=== PATIENT | female | born 1960 | race Caucasian/White ===

== ENCOUNTER → 2016-05-28 | Outpatient (REF) | payer OTHER ==
[~2016-05-28] MED LIST: ALEV220C2 PO; ASPI81TA85 PO; ESTRADIOL VALERATE PO; LEVO125T3 PO; LIPI20TA PO; NATATAB2 PO; NICO14DI20 TD
== END ==
LOC: M LAB REF 22:26
PROVIDERS: ATTEND Physician Assistant Medical
DX: N39.0 Urinary tract infection, site not specified (principal); R30.0 Dysuria

== ENCOUNTER → 2017-04-29 | Outpatient (CLI) | payer OTHER | LOC: M WUC 16:24 | DX: R05 Cough (principal) | CPT/HCPCS: 71046 ==

== ENCOUNTER 2019-01-26 20:33 | Observation (INO) | payer OTHER ==
[~2019-01-26] VITALS: Ht 157.5 cm; Wt 70.3 kg
[~2019-01-26 20:33] MED LIST changes: -LEVO125T3 PO; +LEVO125T4 PO
[2019-01-26 21:14] LABS: BASO % 0.2 % (0.0-1.0); EOS # 0.2 10^3/uL (0.0-0.5); EOS % 1.9 % (0.0-3.0); HEMATOCRIT 29.6 % (36.0-47.0); HEMOGLOBIN 9.3 g/dl (12.0-15.5); LYMPH % 8.4 % (24.0-44.0); MEAN CORPUSCULAR HEMOGLOBIN 28.6 pg (27.0-33.0); MEAN CORPUSCULAR HGB CONC 31.4 g/dl (32.0-36.5); MEAN CORPUSCULAR VOLUME 91.1 fl (80.0-96.0); MONO % 8.3 % (0.0-5.0); NEUTROPHILS # 9.9 10^3/uL (1.5-8.5); NEUTROPHILS % 80.5 % (36.0-66.0); PLATELET COUNT, AUTOMATED 299 10^3/uL (150-450); RED BLOOD COUNT 3.25 10^6/uL (4.00-5.40); WHITE BLOOD COUNT 12.2 10^3/uL (4.0-10.0)
[2019-01-26 21:53] LABS: ALBUMIN 3.4 GM/DL (3.2-5.2); ALT/SGPT 12 U/L (12-78); BILIRUBIN,DIRECT < 0.1 MG/DL (0.0-0.2); BILIRUBIN,TOTAL 0.3 MG/DL (0.2-1.0); BLOOD UREA NITROGEN 58 MG/DL (7-18); CALCIUM LEVEL 8.3 MG/DL (8.8-10.2); CARBON DIOXIDE LEVEL 27 MEQ/L (21-32); CHLORIDE LEVEL 104 MEQ/L (98-107); CK-MB VALUE MASS < 1.0 NG/ML (<3.6); CPK CREATINE PHOSPHOKINASE 17 U/L (26-192); GLUCOSE, FASTING 123 MG/DL (70-100); MB/CK RELATIVE INDEX 5.88 (< OR =4); NT-PRO BNP 1568 PG/ML (<125); POTASSIUM SERUM 3.5 MEQ/L (3.5-5.1); SODIUM LEVEL 139 MEQ/L (136-145); TOTAL PROTEIN 6.4 GM/DL (6.4-8.2); TROPONIN I < 0.02 NG/ML (< 0.10)
--- NOTE | 2019-01-26 22:48 | REPVR ---
PROCEDURE INFORMATION: Exam: CT Cervical Spine Without Contrast Exam date and time: 01/26/2019 10:21 PM Age: 58 years old Clinical history: Injury or trauma; Fall; Initial encounter; Blunt trauma; Additional info: Fall/syncope TECHNIQUE: Imaging protocol: Computed tomography images of the cervical spine without contrast. Radiation optimization: All CT scans at this facility use at least one of these dose optimization techniques: automated exposure control; mA and/or kV adjustment per patient size (includes targeted exams where dose is matched to clinical indication); or iterative reconstruction. COMPARISON: No relevant prior studies available. FINDINGS: Vertebrae: Straightening of the normal cervical lordotic curvature. Normal vertebral body heights and alignments. No fractures. C6-C7 endplate Schmorl's node cavities. Discs/Spinal canal/Neural foramina: No spinal stenosis. No neural foraminal narrowing. Soft tissues: Unremarkable. Lungs: Lung apices are normal. Vasculature: Left carotid stent. IMPRESSION: No acute fracture/subluxation. Electronically signed by: Jacob Pennington On 01/26/2019 22:48:00 PM
--- NOTE | 2019-01-26 22:50 | REPVR ---
PROCEDURE INFORMATION: Exam: CT Head Without Contrast Exam date and time: 01/26/2019 10:21 PM Age: 58 years old Clinical history: Injury or trauma; Fall; Initial encounter; Blunt trauma (contusions or hematomas); Additional info: Fall/syncope TECHNIQUE: Imaging protocol: Computed tomography of the head without contrast. Radiation optimization: All CT scans at this facility use at least one of these dose optimization techniques: automated exposure control; mA and/or kV adjustment per patient size (includes targeted exams where dose is matched to clinical indication); or iterative reconstruction. COMPARISON: CT Head without contrast 2014-04-30 11:26 FINDINGS: Brain: Diffuse moderate cerebral age related volume loss. Moderate patchy low attenuation in the white matter compatible with moderate chronic small vessel ischemic disease. No midline shift, mass, fluid collection, or evidence of hemorrhage. Ventricles: Ventricular enlargement proportional to volume loss. Bones/joints: Unremarkable. No acute fracture. Sinuses: Visualized sinuses are unremarkable. No fluid levels. Mastoid air cells: Visualized mastoid air cells are well aerated. Soft tissues: Left periorbital soft tissue swelling. Vasculature: Coarse atherosclerotic calcifications in the vertebral and internal carotid arteries. IMPRESSION: Moderate involutional changes, no acute intracranial abnormality. Electronically signed by: Jacob Pennington On 01/26/2019 22:50:30 PM
--- NOTE | 2019-01-26 22:52 | REPVR ---
PROCEDURE INFORMATION: Exam: CT Maxillofacial Without Contrast Exam date and time: 01/26/2019 10:21 PM Age: 58 years old Clinical history: Injury or trauma; Fall; Initial encounter; Blunt trauma (contusions or hematomas); Cheek bone and forehead and nose; Bilateral; Additional info: Fall/syncope TECHNIQUE: Imaging protocol: Computed tomography images of the face without contrast. Radiation optimization: All CT scans at this facility use at least one of these dose optimization techniques: automated exposure control; mA and/or kV adjustment per patient size (includes targeted exams where dose is matched to clinical indication); or iterative reconstruction. COMPARISON: No relevant prior studies available. FINDINGS: Orbits: Orbits are normal. Globes are unremarkable. Mastoid air cells: Trace left mastoid effusion. Sinuses: Normal. No air-fluid levels. Bones/joints: Moderate cervical spondylosis. Vasculature: Carotid stent. Soft tissues: Left periorbital soft tissue swelling with a small hematoma. IMPRESSION: 1. No acute osseous abnormality. 2. Left periorbital soft tissue swelling with a small hematoma. Electronically signed by: Jacob Pennington On 01/26/2019 22:52:36 PM
[2019-01-27] VITALS (7 sets, daily range): BP systolic 162–184; BP diastolic 78–90
--- NOTE | 2019-01-27 00:52 | REPVR ---
PROCEDURE INFORMATION: Exam: CT Chest Without Contrast Exam date and time: 01/27/2019 12:04 AM Age: 58 years old Clinical history: Chest pain; Additional info: Chf/ effusion TECHNIQUE: Imaging protocol: Computed tomography of the chest without contrast. 3D rendering: MIP reconstructed images were created and reviewed. Radiation optimization: All CT scans at this facility use at least one of these dose optimization techniques: automated exposure control; mA and/or kV adjustment per patient size (includes targeted exams where dose is matched to clinical indication); or iterative reconstruction. COMPARISON: CR PORTABLE CHEST X-RAY 01/26/2019 9:54 PM FINDINGS: Lungs: Biapical scarring. Dependent and linear atelectasis at the right base. Mild centrilobular emphysema. Pleural space: Small to moderate left pleural effusion with adjacent compressive atelectasis. Heart: Atherosclerotic disease of the coronary arteries. Aorta: Atherosclerotic disease of the thoracic aorta. Mild aneurysmal dilatation of the descending thoracic aorta measuring up to 4 cm in diameter. Lymph nodes: Unremarkable. No enlarged lymph nodes. Liver: Mild hepatomegaly. Bones/joints: Mild osteopenia. Multilevel degenerative disc disease of the thoracic spine. Soft tissues: Unremarkable. IMPRESSION: 1. Small to moderate left pleural effusion with adjacent compressive atelectasis. 2. Atherosclerotic disease of the thoracic aorta. Mild aneurysmal dilatation of the descending thoracic aorta measuring up to 4 cm in diameter. Electronically signed by: Quentin Michaud On 01/27/2019 00:52:49 AM
[2019-01-27] MEDS ORDERED: NS 1,000 ML IV ONE (02:45)
[2019-01-27] MEDS ORDERED: hydrALAZINE INJ 20 MG/ML VIAL IV ONE (03:00)
[2019-01-27] MEDS ORDERED: ALL10TAB29 PO (03:20)
[2019-01-27] MEDS ORDERED: SERT50TA29 PO (03:20)
[2019-01-27] MEDS ORDERED: HYDR25TAB PO (03:20)
[2019-01-27] MEDS ORDERED: LOSA100T50 PO (03:20)
[2019-01-27] MEDS ORDERED: SYNT112T2 PO (03:20)
[2019-01-27] MEDS ORDERED: ATOR40TA75 PO (03:20)
[2019-01-27] MEDS ORDERED: NON-325T5 PO (03:20)
[2019-01-27] MEDS ORDERED: ASPI81TA85 PO (03:20)
--- NOTE | 2019-01-27 03:20 | HPEPDOC ---
General Date of Admission 01/27/19 Date of Service: Jan 27, 2019 Chief Complaint The patient is a 58-year-old female admitted with a reason for visit of Fainting. Source: Patient Exam Limitations: No limitations Severity: Mild Associated Symptoms: Syncope History of Present Illness Patient is 58 years old female with past history of CVA, hypertension, hypothyroidism presented to the hospital after one episode of syncope. Patient stated that yesterday around 6 PM she developed one episode of vomiting and loss of consciousness in the bathroom she hit her head on the left part of the face. She doesn't know how long she has been out of consciousness. According to her patient did not have any focal deficiency, numbness, difficulties in speech after syncope. Patient did not have any seizure-like activities, fecal or urinary incontinence. Of note recently PCP added hydrochlorothiazide 25 mg her drugs regimen. In emergency room patient was found to have mild leukocytosis, elevated blood pressure of 200/80, CT head was negative for acute bleed, showed left orbital hematoma. CT chest was done and showed left mild to moderate pleural effusion. Patient stated that for weeks ago she had COPD exacerbation with acute bronchitis treated with antibiotics. Patient denied fever, chills, nausea, shortness of breath, palpitations, diarrhea or dysuria. Home Medications Scheduled Amlodipine Besylate (Amlodipine Besylate) 10 Mg Tablet, 10 MG PO DAILY, (Reported) Aspirin (Aspir 81) 81 Mg Tablet.dr, 81 MG PO DAILY, (Reported) Atorvastatin Calcium (Atorvastatin Calcium) 40 Mg Tablet, 40 MG PO DAILY, (Reported) Cetirizine HCl (Cetirizine HCl) 10 Mg Tablet, 10 MG PO DAILY, (Reported) Hydrochlorothiazide (Hydrochlorothiazide) 25 Mg Tablet, 25 MG PO DAILY, (Reported) Levothyroxine Sodium (Synthroid) 112 Mcg Tablet, 112 MCG PO DAILY, (Reported) Losartan Potassium (Losartan Potassium) 100 Mg Tablet, 100 MG PO DAILY, (Reported) Sertraline HCl (Sertraline HCl) 50 Mg Tablet, 50 MG PO DAILY, (Reported) Scheduled PRN Acetaminophen (Acetaminophen) 325 Mg Tablet, 650 MG PO Q4H PRN for PAIN, (Reported) Allergies Coded Allergies: No Known Allergies (Verified , 01/26/19) Past Medical History Medical History CVA, left carotid endarterectomy with stent placement, hypothyroidism, hypertension Surgical History Uterectomy Family History Father had coronary artery diseases, [place], diabetes Mother had coronary artery diseases Social History * Smoker: current smoker Alcohol: Denies Drugs: denies A-FIB/CHADSVASC A-FIB History Current/History of A-Fib/PAF?: No Current PO Anticoag Therapy: No Review of Systems Constitutional: Reports: Weakness; Denies: Chills Eyes: Denies: Pain, Vision change ENT: Denies: Head Aches Skin: Denies: Rash Pulmonary: Denies: Dyspnea, Cough Cardiovascular: Denies: Chest Pain, Palpitations Gastrointestinal: Denies: Nausea Genitourinary: Denies: Dysuria Hematologic: Denies: Bruising, Bleeding Excessively Endocrine: Denies: Polydipsia, Polyphagia Musculoskeletal: Denies: Neck Pain, Back Pain Neurological: Denies: Weakness, Numbness, Change in speech Psych: Reports: Mood Normal Physical Examination General Exam: Positive: Alert, Cooperative Eye Exam: Positive: PERRLA, Conjunctiva & lids normal ENT Exam: Positive: Mucous membr. moist/pink; Negative: Atraumatic (left lateral orbital hematoma) Neck Exam: Positive: Supple; Negative: JVD Chest Exam: Positive: Clear to auscultation Heart Exam: Positive: Rate Normal Telemetry: Positive: No significant arrhythmia, Sinus Abdomen Exam: Positive: Normal bowel sounds Extremity Exam: Negative: Clubbing, Cyanosis Skin Exam: Positive: Nl turgor and temperature Neuro Exam: Positive: Normal Gait, Strength at 5/5 X4 ext, Cranial Nerves 3-12 NL Psych Exam: Positive: Mental status NL Vital Signs Vital Signs Date Time Temp Pulse Resp B/P (MAP) Pulse Ox O2 Delivery O2 Flow Rate FiO2 01/27/19 02:54 188/88 (121) 01/27/19 02:03 78 01/27/19 02:01 16 96 Room Air 01/26/19 20:47 98.3 Laboratory Data Labs 24H Laboratory Tests 2 01/26/19 21:03: Immature Granulocyte % (Auto) 0.7, Neutrophils (%) (Auto) 80.5H, Lymphocytes (%) (Auto) 8.4L, Monocytes (%) (Auto) 8.3H, Eosinophils (%) (Auto) 1.9, Basophils (%) (Auto) 0.2, Neutrophils # (Auto) 9.9H, Lymphocytes # (Auto) 1.0L, Monocytes # (Auto) 1.0H, Eosinophils # (Auto) 0.2, Basophils # (Auto) 0.0, Nucleated Red Blood Cells % (auto) 0.0, Anion Gap 8, Glomerular Filtration Rate 23.0L, Calcium Level 8.3L, Total Bilirubin 0.3, Direct Bilirubin < 0.1, Aspartate Amino Transf (AST/SGOT) 6L, Alanine Aminotransferase (ALT/SGPT) 12, Alkaline Phosphatase 82, Total Creatine Kinase 17L, Creatine Kinase MB < 1.0, Creatine Kinase MB Relative Index 5.88H, Troponin I < 0.02, JS-Orm-I-Type Natriuretic Peptide 1568H, Total Protein 6.4, Albumin 3.4, Albumin/Globulin Ratio 1.13, Thyroid Stimulating Hormone (TSH) 2.910 01/26/19 21:10: Bedside Glucose (Misc Panel) 118H CBC/BMP Laboratory Tests 01/26/19 21:03 Assessment/Plan Patient is 58 years old female with past history of CVA, hypertension, hypothyroidism presented to the hospital after one episode of syncope. Patient stated that yesterday around 6 PM she developed one episode of vomiting and loss of consciousness in the bathroom she hit her head on the left part of the face. She doesn't know how long she has been out of consciousness. According to her patient did not have any focal deficiency, numbness, difficulties in speech after syncope. Patient did not have any seizure-like activities, fecal or urinary incontinence Problems (1) Syncope Status: Acute Problem Text: Most likely secondary to dehydration due to new drug regimen with hydrochlorothiazide IV fluid Echo Telemetry (2) Acute kidney injury Status: Acute Problem Text: Most likely prerenal Secondary to dehydration due to diuretic IV volume expansion, continued to mind Losartan and hydrochlorothiazide on hold (3) Pleural effusion Problem Text: Post infectious Patient had around 4-5 weeks ago COPD exacerbation with acute bronchitis Patient doesn't have fever, chills, shortness of breath. Continue to monitor Echo ordered (4) Hypertensive emergency Status: Acute Problem Text: Continue home cardioprotective medications Hydralazine IV when necessary Metoprolol 12.5 twice a day Plan / VTE VTE Prophylaxis Ordered?: Yes SUMMER ANDRE DO Jan 27, 2019 03:20
[2019-01-27] MEDS ORDERED: AMLO10TA5 PO (03:21)
[2019-01-27] MEDS ORDERED: hydrALAZINE INJ 20 MG/ML VIAL IV PRN (03:30)
[2019-01-27] MEDS ORDERED: METOPROLOL TART 25 MG TABLET PO ONE ×2 (03:45→23:15)
[2019-01-27] MEDS: NS 1,000 ML IV SCH ×3 (04:03→16:30)
[2019-01-27] MEDS: LEVOTHYROXINE 112MCG TABLET (0.112MG) PO SCH (06:28)
--- NOTE | 2019-01-27 07:25 | REP ---
Clinical: Syncope. Comparison: 01/16/2019. Findings: Small to moderate left pleural effusion and the left lower lobe atelectasis/infiltrate is appreciated, but improved when compared to prior examination. Remainder of lung murphy are well-aerated. No pneumothorax. Mediastinum and cardiac silhouette are within normal limits. Double structures are intact. Impression: Small to moderate left pleural effusion and left lower lobe atelectasis/infiltrate appears improved when compared to 01/16/2019. Electronically Signed by Cody Sherwood MD 01/27/2019 07:17 A
--- NOTE | 2019-01-27 07:58 | ECGEPIP ---
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
[2019-01-27] MEDS: amLODIPine 10 MG TAB PO SCH (08:06)
[2019-01-27] MEDS: SERTRALINE HCL 50 MG TAB PO SCH (08:06)
[2019-01-27] MEDS: CETIRIZINE (ZyrTEC) 10 MG TAB PO SCH (08:07)
[2019-01-27] MEDS: ATORVASTATIN 20 MG TAB PO SCH (08:07)
[2019-01-27] MEDS: HEPARIN SOD (PORCINE) 5000 UNITS/ML VIAL SC SCH ×2 (08:07→21:55)
[2019-01-27] MEDS: ASPIRIN 81 MG ENTERIC TAB PO SCH (08:07)
[2019-01-27] MEDS: ACETAMINOPHEN TAB 650MG DOSE (2X325MG) PO PRN (08:11)
[2019-01-27] MEDS ORDERED: METOPROLOL TART 12.5 MG PER 1/2 TAB PO SCH (09:00)
[2019-01-27] MEDS: **hydrALAZINE HCL** 25 MG TAB PO SCH ×2 (14:00→21:55)
--- NOTE | 2019-01-27 19:09 | IPNPDOC ---
Date Seen The patient was seen on 01/27/19. Progress Note SUBJECTIVE: 58-year-old female with past medical history of CVA, hypertension, hypothyroidism, was admitted for syncope and acute kidney injury. Patient reports recovering from bronchitis over the past 4-6 weeks, had a syncopal episode consistent with vasovagal. Patient reports poor oral intake, change in hypertension medications with addition of hydrochlorothiazide. She has not had any further episodes since admission, currently is symptomatic, without any complaints, wishing to go home. Patient has been treated with IV hydration, tolerating by mouth intake, continues to cough without production. She denies any short of breath, chest pain, nausea, vomiting, abdominal pain or diarrhea. 10 point review of system is negative except for above PHYSICAL EXAMINATION: VITAL SIGNS: Please see below. GENERAL: No distress HEENT: Normocephalic, atraumatic, moist mucous membranes NECK: Supple CARDIOVASCULAR EXAMINATION: S1, S2, no murmurs RESPIRATORY EXAMINATION: Left lower lobe crackles appreciated, no wheezing ABDOMINAL EXAMINATION: Soft, nontender, nondistended, positive bowel sounds EXTREMITIES: Range of motion intact SKIN: No rash NEUROLOGICAL EXAMINATION: Alert and oriented 3, no focal deficits PSYCHIATRIC EXAMINATION: Calm and cooperative LABORATORY DATA, IMAGING STUDIES, MICROBIOLOGY: Please see below. DVT prophylaxis ordered?: Yes ASSESSMENT AND PLAN: 58-year-old female with past medical history of CVA, hypertension, hypothyroidism, was admitted for syncope and acute kidney injury. PROBLEMS: 1. Acute kidney injury: Likely due to hypovolemia and diuretics, holding diuretics, continue IV hydration. Syncope likely related to dehydration and vasovagal phenomena. Imaging including CT head, cervical spine and chest negative for acute pathology. 2. Bronchitis: Started 4-6 weeks ago, recovering, CT with small left pleural effusion with compressive atelectasis, no signs of active disseminated infection, if suspicion rises, will consider a diagnostic thoracentesis. 3. Hypertensive urgency: Continue home Norvasc, increase metoprolol dose, added hydralazine 25 mg 3 times a day, will monitor and titrate doses as needed. 4. Hypothyroidism: Continue levothyroxine. 5. CVA: Continue aspirin and statin DVT prophylaxis: Heparin subcutaneous GI prophylaxis: Not needed VS, I&O, 24H, Fishbone Vital Signs/I&O Vital Signs Date Time Temp Pulse Resp B/P (MAP) Pulse Ox O2 Delivery O2 Flow Rate FiO2 01/27/19 16:00 99.3 73 18 162/78 (106) 98 Room Air Laboratory Data 24H LABS Laboratory Tests 2 01/26/19 21:03: Immature Granulocyte % (Auto) 0.7, Neutrophils (%) (Auto) 80.5H, Lymphocytes (%) (Auto) 8.4L, Monocytes (%) (Auto) 8.3H, Eosinophils (%) (Auto) 1.9, Basophils (%) (Auto) 0.2, Neutrophils # (Auto) 9.9H, Lymphocytes # (Auto) 1.0L, Monocytes # (Auto) 1.0H, Eosinophils # (Auto) 0.2, Basophils # (Auto) 0.0, Nucleated Red Blood Cells % (auto) 0.0, Anion Gap 8, Glomerular Filtration Rate 23.0L, Calcium Level 8.3L, Total Bilirubin 0.3, Direct Bilirubin < 0.1, Aspartate Amino Transf (AST/SGOT) 6L, Alanine Aminotransferase (ALT/SGPT) 12, Alkaline Phosphatase 82, Total Creatine Kinase 17L, Creatine Kinase MB < 1.0, Creatine Kinase MB Relative Index 5.88H, Troponin I < 0.02, TZ-Jho-C-Type Natriuretic Peptide 1568H, Total Protein 6.4, Albumin 3.4, Albumin/Globulin Ratio 1.13, Thyroid Stimulating Hormone (TSH) 2.910 01/26/19 21:10: Bedside Glucose (Misc Panel) 118H CBC/BMP Laboratory Tests 01/26/19 21:03 LOU RAMIREZ MD Jan 27, 2019 19:09
[2019-01-27] MEDS ORDERED: METOPROLOL TART 25 MG TABLET PO SCH (21:00)
[2019-01-27] MEDS ORDERED: PILL CUTTER 1 EACH XX PRN (23:30)
[2019-01-28] VITALS (10 sets, daily range): BP systolic 146–184; BP diastolic 72–92
[2019-01-28] MEDS: NS 1,000 ML IV SCH ×2 (01:48→11:19)
[2019-01-28] MEDS ORDERED: METOPROLOL TART 25 MG TABLET PO ONE ×2 (03:30→06:00)
[2019-01-28] MEDS: LEVOTHYROXINE 112MCG TABLET (0.112MG) PO SCH (05:16)
[2019-01-28] MEDS: **hydrALAZINE HCL** 25 MG TAB PO SCH ×3 (05:17→21:06)
[2019-01-28 05:26] LABS: HEMATOCRIT 26.9 % (36.0-47.0); HEMOGLOBIN 8.1 g/dl (12.0-15.5); MEAN CORPUSCULAR HEMOGLOBIN 28.1 pg (27.0-33.0); MEAN CORPUSCULAR HGB CONC 30.1 g/dl (32.0-36.5); MEAN CORPUSCULAR VOLUME 93.4 fl (80.0-96.0); PLATELET COUNT, AUTOMATED 204 10^3/uL (150-450); RED BLOOD COUNT 2.88 10^6/uL (4.00-5.40); WHITE BLOOD COUNT 9.9 10^3/uL (4.0-10.0)
[2019-01-28 05:47] LABS: CALCIUM LEVEL 7.9 MG/DL (8.8-10.2); CREATININE FOR GFR 1.92 MG/DL (0.55-1.30); GLOMERULAR FILTRATION RATE 28.4 (>45); MAGNESIUM LEVEL 2.1 MG/DL (1.8-2.4); POTASSIUM SERUM 3.9 MEQ/L (3.5-5.1)
[2019-01-28 08:32] LABS: FERRITIN 136 NG/ML (8-252); IRON (FE) 18 UG/DL (50-170); TOTAL IRON BINDING CAPACITY 225 UG/DL (250-450)
[2019-01-28] MEDS: ATORVASTATIN 20 MG TAB PO SCH (09:29)
[2019-01-28] MEDS: ASPIRIN 81 MG ENTERIC TAB PO SCH (09:29)
[2019-01-28] MEDS: amLODIPine 10 MG TAB PO SCH (09:30)
[2019-01-28] MEDS: CETIRIZINE (ZyrTEC) 10 MG TAB PO SCH (09:30)
[2019-01-28] MEDS: SERTRALINE HCL 50 MG TAB PO SCH (09:30)
[2019-01-28] MEDS: HEPARIN SOD (PORCINE) 5000 UNITS/ML VIAL SC SCH ×2 (09:31→21:07)
[2019-01-28] MEDS: METOPROLOL TART 50 MG TAB PO SCH ×2 (09:31→21:06)
[2019-01-28] MEDS: ACETAMINOPHEN TAB 650MG DOSE (2X325MG) PO PRN ×2 (14:34→21:09)
[2019-01-28] MEDS: FERROUS SULFATE 325MG TAB PO SCH ×2 (14:39→21:06)
--- NOTE | 2019-01-28 20:08 | IPNPDOC ---
Date Seen The patient was seen on 01/28/19. Progress Note SUBJECTIVE: 58-year-old female with past medical history of CVA, hypertension, hypothyroidism, was admitted for syncope and acute kidney injury. Patient reports recovering from bronchitis over the past 4-6 weeks, had a syncopal episode consistent with vasovagal. Patient reports poor oral intake, change in hypertension medications with addition of hydrochlorothiazide. She has not had any further episodes since admission, currently is symptomatic, without any complaints, wishing to go home. Patient has been treated with IV hydration, tolerating by mouth intake, continues to cough without production. She denies any short of breath, chest pain, nausea, vomiting, abdominal pain or diarrhea. 01/28/2019 Patient comfortable, no further episodes of dizziness or syncope, reports left sided rib pain with deep inspiration, hypertensive overnight requiring additional doses of metoprolol and hydralazine by mouth. Blood pressure regimen adjusted, patient requesting to go home. 10 point review of system is negative except for above PHYSICAL EXAMINATION: VITAL SIGNS: Please see below. GENERAL: No distress HEENT: Normocephalic, atraumatic, moist mucous membranes NECK: Supple CARDIOVASCULAR EXAMINATION: S1, S2, no murmurs RESPIRATORY EXAMINATION: Left lower lobe crackles appreciated, no wheezing ABDOMINAL EXAMINATION: Soft, nontender, nondistended, positive bowel sounds EXTREMITIES: Range of motion intact SKIN: No rash NEUROLOGICAL EXAMINATION: Alert and oriented 3, no focal deficits PSYCHIATRIC EXAMINATION: Calm and cooperative LABORATORY DATA, IMAGING STUDIES, MICROBIOLOGY: Please see below. DVT prophylaxis ordered?: Yes ASSESSMENT AND PLAN: 58-year-old female with past medical history of CVA, hypertension, hypothyroidism, was admitted for syncope and acute kidney injury. PROBLEMS: 1. Acute kidney injury: Likely due to hypovolemia and diuretics, holding diuretics, adequately hydrated, by mouth intake is adequate, discontinued IV fluids. Syncope likely related to dehydration and vasovagal phenomena. Imaging including CT head, cervical spine and chest negative for acute pathology. 2. Bronchitis: Started 4-6 weeks ago, recovering, CT with small left pleural eff usion with compressive atelectasis, no signs of active disseminated infection, if suspicion rises, will consider a diagnostic thoracentesis. 3. Hypertensive urgency: Continue home Norvasc, increased metoprolol dose, increase hydralazine to 37.5 mg 3 times a day, blood pressure better controlled today, should remain under better control now that IV fluids and also been discontinued. 4. Hypothyroidism: Continue levothyroxine. 5. CVA: Continue aspirin and statin DVT prophylaxis: Heparin subcutaneous GI prophylaxis: Not needed VS, I&O, 24H, Fishbone Vital Signs/I&O Vital Signs Date Time Temp Pulse Resp B/P (MAP) Pulse Ox O2 Delivery O2 Flow Rate FiO2 01/28/19 16:30 98.4 71 22 146/72 (96) 94 Room Air I&O- Last 24 Hours up to 6 AM 01/28/19 06:00 Intake Total 3480 ml Output Total 1075 ml Balance 2405 ml Laboratory Data 24H LABS Laboratory Tests 2 01/28/19 05:13: Nucleated Red Blood Cells % (auto) 0.0, Anion Gap 7L, Glomerular Filtration Rate 28.4L, Calcium Level 7.9L, Magnesium Level 2.1, Procalcitonin 0.07 CBC/BMP Laboratory Tests 01/28/19 05:13 LOU RAMIREZ MD Jan 28, 2019 20:08
--- NOTE | 2019-01-28 22:49 | ECHO ---
DATE OF PROCEDURE: 01/28/2019 Date of : 1960 Age: 58 REFERRING PHYSICIAN: Anirudh Quinn DO REASON FOR ECHOCARDIOGRAM: Syncope. 2D MEASUREMENTS: IVS: 1.2 cm LV: 4.9 cm LVPW: 1.2 cm LA: 3.8 cm Aorta: 2.6 cm IVC: 1.6 cm DOPPLER MEASUREMENTS: Peak velocity across the aortic valve: 1.7 m/s Peak velocity across the LVOT: 0.95 m/s Mitral E: 1.1, Mitral A: 0.70 with a ratio of 1.6 Maximum tricuspid valve velocity: 2.6 m/s 2D COMMENTS: 1. Normal left ventricular size, wall thickness and normal global left ventricular systolic function. The estimated left ventricular systolic ejection fraction is 60 to 65%. 2. Normal left atrium. Normal right atrium and right ventricle. 3. The atrial septum appeared to be normal without evidence of defect or shunt. 4. Normal aortic root. 5. Trace pericardial effusion noted in limited views. Pleural effusion, however, was noted and this may be significant. 6. Mildly calcified aortic valve with normal leaflet excursion. Mildly calcified mitral annulus with normal anterior mitral valve leaflet motion. Normal tricuspid valve. The pulmonic valve and proximal pulmonary artery branches were not well visualized. 7. The inferior vena cava was normal in size, central venous pressure is most likely normal. DOPPLER: It detects mild to moderate mitral regurgitation, mild tricuspid regurgitation. The calculated pulmonary artery systolic pressure varies between 30 to 40 mmHg. Assessment of the left ventricular diastolic function appeared to be normal. IMPRESSION: 1. Normal global left ventricular systolic and diastolic function. 2. Aortic valve sclerosis with trivial aortic stenosis, but no aortic regurgitation. 3. Mitral annulus calcification with mild to moderate mitral regurgitation. 4. Mild tricuspid regurgitation with mild pulmonary hypertension. 5. Trace pericardial effusion was noted. Pleural effusion was noted and this may be significant.
[2019-01-29] MEDS: LEVOTHYROXINE 112MCG TABLET (0.112MG) PO SCH (05:45)
[2019-01-29] MEDS: **hydrALAZINE HCL** 25 MG TAB PO SCH (05:46)
[2019-01-29 06:00] VITALS: BP 131/86
[2019-01-29 06:18] LABS: HEMATOCRIT 26.7 % (36.0-47.0); HEMOGLOBIN 8.1 g/dl (12.0-15.5); MEAN CORPUSCULAR HEMOGLOBIN 28.5 pg (27.0-33.0); MEAN CORPUSCULAR HGB CONC 30.3 g/dl (32.0-36.5); PLATELET COUNT, AUTOMATED 200 10^3/uL (150-450); RED BLOOD COUNT 2.84 10^6/uL (4.00-5.40); WHITE BLOOD COUNT 9.9 10^3/uL (4.0-10.0)
[2019-01-29 06:43] LABS: CALCIUM LEVEL 8.3 MG/DL (8.8-10.2); CREATININE FOR GFR 1.59 MG/DL (0.55-1.30); GLOMERULAR FILTRATION RATE 35.3 (>45); MAGNESIUM LEVEL 2.2 MG/DL (1.8-2.4); PHOSPHORUS LEVEL 3.8 MG/DL (2.5-4.9)
[2019-01-29 08:23] VITALS: BP 178/77
[2019-01-29] MEDS: amLODIPine 10 MG TAB PO SCH (08:23)
[2019-01-29] MEDS: ASPIRIN 81 MG ENTERIC TAB PO SCH (08:23)
[2019-01-29] MEDS: HEPARIN SOD (PORCINE) 5000 UNITS/ML VIAL SC SCH (08:23)
[2019-01-29] MEDS: FERROUS SULFATE 325MG TAB PO SCH (08:23)
[2019-01-29] MEDS: CETIRIZINE (ZyrTEC) 10 MG TAB PO SCH (08:24)
[2019-01-29] MEDS: ATORVASTATIN 20 MG TAB PO SCH (08:24)
[2019-01-29] MEDS: SERTRALINE HCL 50 MG TAB PO SCH (08:24)
[2019-01-29] MEDS: METOPROLOL TART 50 MG TAB PO SCH (08:24)
[2019-01-29] MEDS ORDERED: HYDR-3911 PO (09:33)
[2019-01-29] MEDS ORDERED: FERR325T18 PO (09:33)
[2019-01-29] MEDS ORDERED: LOPR1TAB6 PO (09:33)
--- NOTE | 2019-01-29 09:39 | DS.PDOC ---
Discharge Summary General Date of Admission Jan 26, 2019 at 20:34 Date of Discharge 01/29/2019 Attending Physician: LOU RAMIREZ MD Discharge Summary PROCEDURES PERFORMED DURING STAY: None. ADMITTING DIAGNOSES: 1. Syncope. DISCHARGE DIAGNOSES: 1. Syncope, acute kidney injury. COMPLICATIONS/CHIEF COMPLAINT: Acute Kidney Injury, Syncope. HISTORY OF PRESENT ILLNESS: 58-year-old female with past medical history of CVA, hypertension, hypothyroidism, was admitted for syncope and acute kidney injury. Syncope, likely due to vasovagal, workup including telemetry monitoring, ech ocardiogram and brain imaging negative for acute pathology. Patient has not had any further episodes or dizziness while hospitalized, without any clicks at this time. Patient's acute kidney injury, likely due to dehydration, which may have also contributed to patient's syncope, along with medication (losartan and hydrochlorothiazide). Losartan and hydrochlorothiazide were held, patient treated with IV fluids with subsequent improvement in renal function. IV fluids were discontinued 24 hours ago, renal function continues to improve, patient stable for discharge and outpatient follow-up with nephrology and PCP within 1 week for medication adjustment. Patient will likely need to restart losartan when renal function allows. Patient also had hypertensive urgency while hospitalized, medications were adjusted, metoprolol and hydralazine were added to her regimen with acceptable blood pressure control at this time. Patient has a blood pressure monitor at home, reports she is able to check BP. 3 times a day, advised her to check before taking each of for hydralazine doses and not to take hydralazine if SBP is less than 120. Patient understands and agrees with above plan. Patient is strongly advised to follow with PCP and nephrology within 1 week to have repeat labs and adjustment of her blood pressure regimen. Patient reports she will be able to see her physician on Saturday. HOSPITAL COURSE: As above. DISCHARGE MEDICATIONS: Please see below. ALLERGIES: Please see below. PHYSICAL EXAMINATION: VITAL SIGNS: Please see below. GENERAL: No distress HEENT: Normocephalic, bruise on left eye, moist mucous membranes NECK: Supple CARDIOVASCULAR EXAMINATION: S1, S2, no murmurs RESPIRATORY EXAMINATION: Left lower lobe crackles appreciated, no wheezing ABDOMINAL EXAMINATION: Soft, nontender, nondistended, positive bowel sounds EXTREMITIES: Range of motion intact SKIN: No rash NEUROLOGICAL EXAMINATION: Alert and oriented 3, no focal deficits PSYCHIATRIC EXAMINATION: Calm and cooperative LABORATORY DATA: Please see below. PROGNOSIS: Fair ACTIVITY: As tolerated. DIET: Cardiac DISCHARGE PLAN: Patient will follow up with powder expert and PCP in one week DISPOSITION: Home. DISCHARGE INSTRUCTIONS: 1. As above. DISCHARGE CONDITION: Stable. TIME SPENT ON DISCHARGE: Greater than 33 minutes. Vital Signs/I&Os Vital Signs Date Time Temp Pulse Resp B/P (MAP) Pulse Ox O2 Delivery O2 Flow Rate FiO2 01/29/19 08:23 86 178/77 01/29/19 06:00 97.7 18 95 01/28/19 16:30 Room Air I&O- Last 24 Hours up to 6 AM 01/29/19 06:00 Intake Total 1620 ml Output Total 1025 ml Balance 595 ml Laboratory Data Labs 24H Laboratory Tests 2 01/29/19 05:56: Nucleated Red Blood Cells % (auto) 0.0, Anion Gap 5L, Glomerular Filtration Rate 35.3L, Calcium Level 8.3L, Phosphorus Level 3.8, Magnesium Level 2.2 CBC/BMP Laboratory Tests 01/29/19 05:56 Discharge Medications Scheduled Amlodipine Besylate (Amlodipine Besylate) 10 Mg Tablet, 10 MG PO DAILY, (Reported) Aspirin (Aspir 81) 81 Mg Tablet.dr, 81 MG PO DAILY, (Reported) Atorvastatin Calcium (Atorvastatin Calcium) 40 Mg Tablet, 40 MG PO DAILY, (Reported) Cetirizine HCl (Cetirizine HCl) 10 Mg Tablet, 10 MG PO DAILY, (Reported) Ferrous Sulfate (Ferrous Sulfate) 325 Mg Tablet, 325 MG PO BID Hydralazine HCl (Hydralazine HCl) 50 Mg Tablet, 50 MG PO TID Levothyroxine Sodium (Synthroid) 112 Mcg Tablet, 112 MCG PO DAILY, (Reported) Metoprolol Tartrate (Lopressor) 50 Mg Tablet, 50 MG PO BID Sertraline HCl (Sertraline HCl) 50 Mg Tablet, 50 MG PO DAILY, (Reported) Scheduled PRN Acetaminophen (Acetaminophen) 325 Mg Tablet, 650 MG PO Q4H PRN for PAIN, (Reported) Allergies Coded Allergies: No Known Allergies (Verified , 01/26/19) LOU RAMIREZ MD Jan 29, 2019 09:39
== END 2019-01-29 11:08 | disposition home or self-care (01) ==
LOC: M ED 20:33 → M ED INP 20:34 → M PCU 01-27 06:01 → M MSPAV 01-28 16:13
PROVIDERS: ADMIT Internal Medicine; ATTEND Internal Medicine
DX: R55 Syncope and collapse (principal); N17.9 Acute kidney failure, unspecified; I16.0 Hypertensive urgency; J40 Bronchitis, not specified as acute or chronic; J90 Pleural effusion, not elsewhere classified; E03.9 Hypothyroidism, unspecified; Z86.73 Personal history of transient ischemic attack (TIA), and cerebral infarction without residual deficits; Z79.899 Other long term (current) drug therapy; Z79.82 Long term (current) use of aspirin; F17.200 Nicotine dependence, unspecified, uncomplicated

== ENCOUNTER → 2019-02-05 | Outpatient (REF) | payer OTHER ==
[~2019-02-05] MED LIST changes: +ALL10TAB29 PO; +AMLO10TA5 PO; +ATOR40TA75 PO; +FERR325T18 PO; +HYDR-3911 PO; +HYDR25TAB PO; +LOPR1TAB6 PO; +LOSA100T50 PO; +NON-325T5 PO; +SERT50TA29 PO; +SYNT112T2 PO
[2019-02-05 19:30] LABS: CALCIUM LEVEL 8.2 MG/DL (8.8-10.2); CREATININE FOR GFR 1.52 MG/DL (0.55-1.30); GLOMERULAR FILTRATION RATE 37.1 (>45); POTASSIUM SERUM 4.5 MEQ/L (3.5-5.1)
== END ==
LOC: M LABDRAW1 18:39
PROVIDERS: ATTEND Family Medicine
DX: I10 Essential (primary) hypertension (principal)

== ENCOUNTER → 2019-02-09 | Outpatient (REF) | payer OTHER ==
[2019-02-09 18:58] LABS: HEMATOCRIT 28.7 % (36.0-47.0); HEMOGLOBIN 8.4 g/dl (12.0-15.5); MEAN CORPUSCULAR HEMOGLOBIN 27.9 pg (27.0-33.0); MEAN CORPUSCULAR HGB CONC 29.3 g/dl (32.0-36.5); MEAN CORPUSCULAR VOLUME 95.3 fl (80.0-96.0); PLATELET COUNT, AUTOMATED 365 10^3/uL (150-450); RED BLOOD COUNT 3.01 10^6/uL (4.00-5.40); WHITE BLOOD COUNT 7.3 10^3/uL (4.0-10.0)
[2019-02-09 19:04] LABS: CREATININE FOR GFR 1.6 MG/DL (0.55-1.30); POTASSIUM SERUM 4.4 MEQ/L (3.5-5.1)
== END ==
LOC: M LABDRAW1 16:54
PROVIDERS: ATTEND Family Medicine
DX: I10 Essential (primary) hypertension (principal)

== ENCOUNTER → 2019-02-23 | Outpatient (REF) | payer OTHER ==
[2019-02-23 16:02] LABS: HEMATOCRIT 31.5 % (36.0-47.0); HEMOGLOBIN 9.2 g/dl (12.0-15.5); MEAN CORPUSCULAR HGB CONC 29.2 g/dl (32.0-36.5); PLATELET COUNT, AUTOMATED 314 10^3/uL (150-450); RED BLOOD COUNT 3.28 10^6/uL (4.00-5.40)
[2019-02-23 16:10] LABS: ALBUMIN 3.5 GM/DL (3.2-5.2); BILIRUBIN,TOTAL 0.4 MG/DL (0.2-1.0); CREATININE FOR GFR 1.56 MG/DL (0.55-1.30); PERCENT SATURATION 16.3 % (13.2-45.0); POTASSIUM SERUM 4.1 MEQ/L (3.5-5.1); TOTAL PROTEIN 6.7 GM/DL (6.4-8.2)
[2019-02-23 16:18] LABS: FOLATE 5.3 NG/ML
== END ==
LOC: M LABDRAW1 15:35
PROVIDERS: ATTEND Family Medicine
DX: D64.9 Anemia, unspecified (principal); R60.9 Edema, unspecified

== ENCOUNTER → 2019-03-02 | Outpatient (CLI) | payer OTHER ==
--- NOTE | 2019-03-02 07:53 | REP ---
Clinical: Hypertension and chronic medical renal disease. Technique: Kim scale and color Doppler evaluation of the kidneys and renal vasculature using curved array transducer. Findings: The kidneys are essentially normal in contour, size and echogenicity and reniform shape without hydronephrosis, nephrolithiasis, cystic or renal mass lesion. Right kidney measures 9.5 x 4.8 x 4.2 cm . Left kidney measures 9.5 x 3.7 x 3.3 cm and demonstrates cortical thinning. Bladder is incompletely distended and grossly normal by current evaluation. Color Doppler evaluation of the renal vasculature demonstrates increased bilateral renal arterial velocities and associated renal aortic ratios as well as abnormal resistive indices and acceleration times with parvus tardus wave patterns. Findings are consistent with the renal arterial stenosis. Right Kidney: Peak arterial velocity: 480 . Renal aortic ratio: 4.3 . Resistive indices: 0.46 - 0.52 . Acceleration times: 0.167 - 0.214 . Left kidney: Peak arterial velocity: 473 . Renal aortic ratio: 4.2 . Resistive indices: 0.53 - 0.56 . Acceleration times: 0.192 - 0.216 . Impression: Findings are compatible with renal arterial stenosis. Electronically Signed by Cody Sherwood MD 03/02/2019 07:44 A
== END ==
LOC: M RAD 06:23
PROVIDERS: ATTEND Internal Medicine Cardiovascular Disease
DX: N18.3 Chronic kidney disease, stage 3 (moderate) (principal)

== ENCOUNTER → 2019-03-17 | Outpatient (CLI) | payer OTHER ==
[~2019-03-17] MED LIST changes: +ISOVUE-370 76% 100ML VIAL (Q9967) As Ordered ONE; +LOSA50TA88 PO; +TORS20TA2 PO
--- NOTE | 2019-03-18 06:48 | REP ---
Clinical: Sonographic evidence to suggest renal artery stenosis. Technique: Axial contrast enhanced images of the abdomen using angiographic technique with maximal enhancement of the aorta and branch vessels. Multiplanar MIP re-formations and reconstructed 3-D volume rendered images of the aorta along with MPR reconstructions of the bilateral renal arteries. Findings: Moderate/large left pleural effusion with atelectasis/partial collapse to the left lower lobe is appreciated along with mild cardiomegaly. Hepatosplenomegaly is suggested without focal hepatic or splenic lesion identified. Pancreas, gallbladder, and bilateral adrenal glands are normal. There is moderate atrophic appearance to the left kidney with decreased enhancement as compared to the presumed relatively normal right kidney. There is evidence for focal stenosis and possible occlusion at the origin of the right main renal artery as well as focal stenosis and occlusion at the origin of the left main renal artery with subsequent decreased luminal diameter. Visualized portions of the enteric system are unremarkable. Prominent mesenteric and retroperitoneal/ pararenal adenopathy is identified and of uncertain etiology. No ascites. No free air. Moderate to significant atherosclerotic changes of the aorta and branch vessels noted along with what appears to be occlusion of the proximal superior mesenteric artery with subsequent downstream enhancement by small collateral branch vessels from the celiac axis. The inferior mesenteric artery appears occluded and moderate to significant atherosclerotic changes of the visualized iliac arteries noted as well. Impression: 1. Angiographic evaluation demonstrates significant atherosclerotic disease to the aorta as well as occlusion of the proximal superior mesenteric artery with revascularization by collateral vessels from the celiac access. There is suspected occlusion of the inferior mesenteric artery. 2. There is evidence for stenosis and occlusion involving the origins of the bilateral renal arteries (left greater than right) with subsequent chronic atrophic appearance to the left kidney and asymmetric decreased left renal parenchymal enhancement. 3. Moderate/large left pleural effusion with partial collapse and atelectasis to the left lower lobe. 4. Hepatosplenomegaly without focal hepatic or splenic lesion identified. Electronically Signed by Cody Sherwood MD 03/18/2019 06:40 A
== END ==
LOC: M RAD 12:39
PROVIDERS: ATTEND Internal Medicine Cardiovascular Disease
DX: I70.1 Atherosclerosis of renal artery (principal); J90 Pleural effusion, not elsewhere classified; R16.2 Hepatomegaly with splenomegaly, not elsewhere classified; I12.9 Hypertensive chronic kidney disease with stage 1 through stage 4 chronic kidney disease, or unspecified chronic kidney disease; N18.3 Chronic kidney disease, stage 3 (moderate)
CPT/HCPCS: 74175; Q9967

== ENCOUNTER → 2019-06-30 | Outpatient (POV) | payer OTHER ==
[~2019-06-30] MED LIST changes: -ISOVUE-370 76% 100ML VIAL (Q9967) As Ordered ONE
--- NOTE | 2019-07-01 10:24 | IRCOV ---
[facility] IR Consult Office Visit IR Consult Office Visit DATE: Jun 30, 2019 REASON FOR CONSULTATION/CHIEF COMPLAINT: Refractory hypertension. Renal artery stenosis. HISTORY OF PRESENT ILLNESS: 58 year old female with CHF, CKD, carotid and mesenteric artery stenosis, presents with hypertension refractory to antihypertensives. Patient reports blood pressures as high as 200/97 and low as 160-180 systolic for several years despite being on up to 5 anti hypertensives at any one time. Patient reports syncope episode in January 2019 soon after starting hydrochlorothiazide, where she sustained an orbital hematoma. Patient has never reached goal blood pressure. She is currently on Hydralazine 100 tid, spironolactone 25 bid, torsemide 20 od, amlodipine 10 od and metoprolol 50 bid, She is under the care of cardiology and nephrology. Patient has 5 pillow orthopnea, reports shortness of breath on exertion and is known to have a left pleural effusion. Denies chest pain or paroxysmal nocturnal dyspnea. She suffered a stroke in 2013 with residual self reported slower thinking. No prior renal angiogram or intervention. ALLERGIES: Please see below. HOME MEDICATIONS: Please see below. PAST MEDICAL HISTORY: CHF HTN CKD renal artery stenosis mesenteric and carotid artery disease PAST SURGICAL HISTORY: Hysterectomy partial thyroidectomy carotid artery stenting FAMILY HISTORY: heart disease. SOCIAL HISTORY: recently stopped smoking. denies alcohol or drugs REVIEW OF SYSTEMS: Otherwise negative PHYSICAL EXAMINATION: no video on patient side LABORATORY DATA: 06/26/19 Na 135 K 3.79 bun 37 creatinine 1.6 GFR 33 Hgb 11 HCT 33 wbc 7 plt 355 PTH 54 Imaging: I personally reviewed the CTA abdomen images from March 2019. There is severe stenosis/occlusion of the right proximal renal artery with post stenotic dilation. There is severe stenosis of the left proximal renal artery with less post stenotic dilation; the left kidney is atrophic. There is also proximal superior mesenteric occlusion with mid reconstitution of supply and hypertrophied celiac artery. ASSESSMENT/PLAN: 58 year female arteriopath with refractory hypertension and renal disease. I agree she would benefit from renal angiogram and stenting if possible. The use of less contrast medium being of critical importance in this case as over hydration is not an option, given her heart failure. We will schedule the patient for the procedure. We discussed the risk and benefits of the procedure and patient would like to proceed. I spent 30 minutes in consultation with the patient. Thank you for this referral. [facility] cc Dr. Jenkins Allergies Coded Allergies: No Known Allergies (Verified , 03/12/19) Home Medications Scheduled Amlodipine Besylate (Amlodipine Besylate), 10 MG PO DAILY, (Reported) Aspirin (Aspir 81), 81 MG PO DAILY, (Reported) Atorvastatin Calcium (Atorvastatin Calcium), 40 MG PO DAILY, (Reported) Cetirizine HCl (Cetirizine HCl), 10 MG PO DAILY, (Reported) Ferrous Sulfate (Ferrous Sulfate), 325 MG PO BID Hydralazine HCl (Hydralazine HCl), 50 MG PO TID Levothyroxine Sodium (Synthroid), 112 MCG PO DAILY, (Reported) Losartan Potassium (Losartan Potassium), 50 MG PO DAILY, (Reported) Metoprolol Tartrate (Lopressor), 50 MG PO BID Sertraline HCl (Sertraline HCl), 50 MG PO DAILY, (Reported) Torsemide (Torsemide), 20 MG PO DAILY, (Reported) Scheduled PRN Acetaminophen (Acetaminophen), 650 MG PO Q4H PRN for PAIN, (Reported) MINERVA ELDER MD Jul 01, 2019 10:24
== END ==
LOC: M TMIRPOV 10:47
PROVIDERS: ATTEND Radiology Diagnostic Radiology
DX: I10 Essential (primary) hypertension (principal); I70.1 Atherosclerosis of renal artery; Z79.899 Other long term (current) drug therapy

== ENCOUNTER → 2019-07-02 | Outpatient (CLI) | payer OTHER ==
--- NOTE | 2019-07-02 11:53 | REP ---
CHEST, TWO VIEWS: Two views of the chest is performed following left thoracentesis. There is a very small amount of residual left pleural fluid remaining. There is no pneumothorax. There is mild cardiomegaly. There is some minimal left basilar parenchymal opacity. IMPRESSION: No pneumothorax, status post left thoracentesis. Decreased amount of left pleural fluid with minimal residual remaining. Electronically Signed by Andrey Kim MD 07/02/2019 12:03 P
[2019-07-02 12:54] VITALS: BP 222/95
--- NOTE | 2019-07-02 15:30 | REP ---
Ultrasound-guided thoracentesis The procedure was performed by DOMINIQUE Dang, under the direct supervision of Dr. Kim. The risks and benefits of the procedure were explained to the patient and informed consent was obtained both verbally and written. Directly prior to the start of the procedure, a formal timeout was completed in the exam room. Pleural fluid on the left lung zone was localized using ultrasound guidance. The skin was prepped and draped in a sterile fashion. 10 mL of 1% lidocaine 10 mg/ml was used as a local anesthetic. Using ultrasound guidance, an 8-Iraqi multi side-hole catheter was inserted and advanced into the fluid. 600 ml of yellow colored fluid was withdrawn and sent to the lab for analysis. The patient tolerated the procedure well and there were no immediate complications. After the appropriate amount of monitored convalescence, the patient was discharged from the department. Reviewed by DOMINIQUE Hensley 07/02/2019 01:11 P Electronically Signed by Andrey Kim MD 07/02/2019 03:21 P
== END ==
LOC: M IRPRO 09:54
PROVIDERS: ATTEND Internal Medicine Nephrology
DX: J90 Pleural effusion, not elsewhere classified (principal)

== ENCOUNTER → 2019-07-10 | Outpatient (CLI) | payer OTHER ==
[~2019-07-10] MED LIST changes: +**hydrALAZINE** 50 MG TAB PO ONE; +ISOVUE-300 61% 50ML VIAL As Ordered ONE; +LIDOCAINE 1% MDV 20ML VIAL As Ordered ONE; +MIDAZOLAM INJ 2MG/2ML VIAL (J2250 PER 1MG) As Ordered ONE; +ONDANSETRON 4MG/2ML VIAL IV PRN; +PERCOCET 5MG/325MG TAB PO PRN; +TORSEMIDE 20 MG TAB PO ONE; +amLODIPine 10 MG TAB PO ONE; +diphenhydrAMINE 50MG/ML VIAL (J1200) As Ordered ONE; +fentaNYL 100 MCG/2 ML INJECTION (J3010) As Ordered ONE
[2019-07-10 07:07] LABS: HEMATOCRIT 34.3 % (36.0-47.0); HEMOGLOBIN 10.7 g/dl (12.0-15.5); MEAN CORPUSCULAR HEMOGLOBIN 28.5 pg (27.0-33.0); MEAN CORPUSCULAR HGB CONC 31.2 g/dl (32.0-36.5); MEAN CORPUSCULAR VOLUME 91.5 fl (80.0-96.0); PLATELET COUNT, AUTOMATED 268 10^3/uL (150-450); RED BLOOD COUNT 3.75 10^6/uL (4.00-5.40); WHITE BLOOD COUNT 7.4 10^3/uL (4.0-10.0)
[2019-07-10 07:33] LABS: ALBUMIN 3.8 GM/DL (3.2-5.2); BILIRUBIN,TOTAL 0.3 MG/DL (0.2-1.0); CALCIUM LEVEL 9.6 MG/DL (8.8-10.2); CREATININE FOR GFR 1.81 MG/DL (0.55-1.30); GLOMERULAR FILTRATION RATE 30.4 (>45); POTASSIUM SERUM 4.4 MEQ/L (3.5-5.1); TOTAL PROTEIN 7.4 GM/DL (6.4-8.2)
--- NOTE | 2019-07-10 07:34 | IRHP ---
[facility] IR Pre-Procedure H & P General Date of Service: July 10, 2019 Procedure: Same Day Surgery Interval History and Physical I have seen the patient and reviewed last H & P performed within 30 days. There is no significant interval change. Appearnce: alert comfortable at rest Eespiratory: Breathing normal at rest Heart: rate normal Abdomen: non distended Extremities: moving all 4 extremities History of Present Illness Chief Complaint The patient is a 58-year-old female admitted with a reason for visit of Renal Artery Stenosis. PRE-PROCEDURE DIAGNOSIS: CATHY HEART: normal rate. LUNGS: normal breathing at rest. ASA Classification ASA Classification: III-Severe systemic dis. Mallampati Score: II NPO: Yes Problems with prior sedation: No Obstructive Sleep Apnea: No Plan moderate sedation Allergies Coded Allergies: No Known Allergies (Verified , 03/12/19) Home Medications Scheduled Amlodipine Besylate (Amlodipine Besylate), 10 MG PO DAILY, (Reported) Aspirin (Aspir 81), 81 MG PO DAILY, (Reported) Atorvastatin Calcium (Atorvastatin Calcium), 40 MG PO DAILY, (Reported) Cetirizine HCl (Cetirizine HCl), 10 MG PO DAILY, (Reported) Ferrous Sulfate (Ferrous Sulfate), 325 MG PO BID Hydralazine HCl (Hydralazine HCl), 50 MG PO TID Levothyroxine Sodium (Synthroid), 112 MCG PO DAILY, (Reported) Metoprolol Tartrate (Lopressor), 50 MG PO BID Sertraline HCl (Sertraline HCl), 50 MG PO DAILY, (Reported) Torsemide (Torsemide), 20 MG PO DAILY, (Reported) Scheduled PRN Acetaminophen (Acetaminophen), 650 MG PO Q4H PRN for PAIN, (Reported) VS, I&O, 24H, Fishbone Vital Signs/I&O Vital Signs Date Time Temp Pulse Resp B/P (MAP) Pulse Ox O2 Delivery O2 Flow Rate FiO2 07/10/19 06:49 99.2 67 18 96 Room Air Laboratory Data 24H LABS Laboratory Tests 2 07/10/19 06:48: Nucleated Red Blood Cells % (auto) 0.0 CBC/BMP Laboratory Tests 07/10/19 06:48 MINERVA ELDER MD July 10, 2019 07:34
[2019-07-10 11:41] VITALS: BP 206/93
[2019-07-10 14:18] VITALS: BP 159/71
--- NOTE | 2019-07-11 07:59 | POST-OPPD ---
Postoperative Procedure Note Date Of Procedure: July 10, 2019 Time Of Procedure: 10:42 PREOPERATIVE DIAGNOSIS: renal artery stenosis. refractory HTN POSTOPERATIVE DIAGNOSIS: same FINDINGS: severe right renal artery stenosis with post renal dilation. left renal artery occlusion. PROCEDURE: diagnostic renal angiogram only. Patient exceeded desired contrast dose with diagnostic renal angiogram and renal catheterization only. Patient will be bought back for stenting in few weeks. SURGEON: isai ANESTHESIA: mod sed ESTIMATED BLOOD LOSS: < 5 ml COMPLICATIONS: none POSTOPERATIVE CONDITION: stable MINERVA ELDER MD July 11, 2019 07:59
--- NOTE | 2019-07-13 15:11 | REP ---
IR Bilateral renal angiogram. IR Moderate sedation. Clinical Information: Refractory hypertension. Bilateral renal artery stenosis. Physician: Dr Parisi.Procedure: The patient was advised of the benefits, risks, and alternatives of the procedure and informed consent was obtained.A time out was performed with verification of the patient's name, MRN, site of procedure, and type of procedure to be performed. The patient was positioned in the supine position on the angiographic table. The site was prepped and draped in the usual sterile fashion.Moderate sedation was performed by the physician including the presence of an independent trained observer who assisted in monitoring the patient's level of consciousness and physiological status. Following the administration of Fentanyl and Versed, the physician spent 90 minutes of continuous [id number] time with the patient. A pump and still operator radiograph reveals no gross abnormality. The right femoral artery was accessed with a micropuncture kit. A Mingleverse wire was advanced into the aorta. The micropuncture sheath was exchanged over the wire for a a 6-Algerian vascular sheath. A pigtail catheter was advanced over the wire under fluoroscopy guidance and used catheterize the abdominal aorta. An aortogram was performed and this demonstrates atherosclerotic disease of the abdominal aorta and an infrarenal aortic aneurysm. Severe stenosis/occlusion of the origin of the left common iliac artery with post stenotic dilation. Complete occlusion of the left renal artery. Poor visualization of the right renal artery. The pigtail catheter was removed over the wire. A [employer] guide cath was advanced over the wire into the abdominal aorta. A SOS catheter was advanced over the wire through the guide cath, and used to catheterize the origin of the left renal artery. An arteriogram was performed and this demonstrates complete occlusion of the proximal left renal artery. The diagnostic catheter in conjunction with a wire was used to catheterize the right renal artery. An arteriogram was performed and this demonstrates severe stenosis of the origin of the right renal artery with post stenotic dilation. The diagnostic catheter and guide cath were removed. A 6-Algerian [employer] device was used to close the groin arteriotomy and the sheath was removed. Hemostasis achieved. A sterile dressing was applied to the site. Patient tolerated the procedure well and was transferred to PRU in stable condition. Complications: None. Estimated blood loss: Less than 5 ml. Impression: 1. Aortogram and bilateral renal angiogram demonstrates complete occlusion of the left proximal renal artery. 2. Severe stenosis of the origin of the right renal artery with post stenotic dilation. 3, The patient exceeded desired contrast volume for renal arteriogram and interrogation. The patient will be brought back for stenting. Thank you for this referral. Electronically Signed by Sue Parisi MD 07/13/2019 03:10 P
== END ==
LOC: M IRPRO 06:30
PROVIDERS: ATTEND Radiology Diagnostic Radiology
DX: I70.1 Atherosclerosis of renal artery (principal); I15.8 Other secondary hypertension; I71.4 Abdominal aortic aneurysm, without rupture; I70.202 Unspecified atherosclerosis of native arteries of extremities, left leg
CPT/HCPCS: 36200; 36251; 75630; 80053; 85027; 99152; 99153; C1725; C1760; C1769; C1887; C1894; J1200; J1644; J2250; J3010; Q9967

== ENCOUNTER → 2019-09-08 | Outpatient (POV) | payer OTHER ==
[~2019-09-08] MED LIST changes: -**hydrALAZINE** 50 MG TAB PO ONE; -ALL10TAB29 PO; -AMLO10TA5 PO; +AMLO1TAB25 PO; -ASPI81TA85 PO; +ASPI81TA86 PO; +CETI-24 PO; +HYDR100T PO; -ISOVUE-300 61% 50ML VIAL As Ordered ONE; -LIDOCAINE 1% MDV 20ML VIAL As Ordered ONE; -MIDAZOLAM INJ 2MG/2ML VIAL (J2250 PER 1MG) As Ordered ONE; -ONDANSETRON 4MG/2ML VIAL IV PRN; -PERCOCET 5MG/325MG TAB PO PRN; -TORSEMIDE 20 MG TAB PO ONE; -amLODIPine 10 MG TAB PO ONE; -diphenhydrAMINE 50MG/ML VIAL (J1200) As Ordered ONE; -fentaNYL 100 MCG/2 ML INJECTION (J3010) As Ordered ONE
--- NOTE | 2019-09-09 09:01 | IRPN ---
[facility] IR Progress Note IR Progress Note DATE: Sep 08, 2019 Patient agreed to this telephone consultation. Duration of call was 5 minutes. FOLLOW-UP: 1 month status post right renal artery stenting for refractory hypertension. Patient doing well. States blood pressure is now 120-130/80. Continues on aspirin and Plavix. Left wrist access site, healed. States no pain, bruising or issue with the left wrist or hand. ON EXAMINATION: No video on patient side. IMPRESSION: Doing well status post right renal artery stenting with improved blood pressure control. Given this was the better kidney and good result, we need not intervene on the atrophic left kidney at this time. Continue aspirin and Plavix and follow up in R clinic in 1 year. Thank you for this referral cc Dr. Skyler Bradley Allergies Coded Allergies: No Known Allergies (Verified , 03/12/19) MINERVA ELDER MD Sep 09, 2019 09:00
== END ==
LOC: M IRPOV 08:21
PROVIDERS: ATTEND Radiology Diagnostic Radiology
DX: Z48.812 Encounter for surgical aftercare following surgery on the circulatory system (principal); I10 Essential (primary) hypertension

== ENCOUNTER → 2019-10-26 | Outpatient (REF) | payer OTHER | LOC: M LAB REF 11:53 | PROVIDERS: ATTEND Physician Assistant Medical | DX: L91.8 Other hypertrophic disorders of the skin (principal) ==

== ENCOUNTER → 2019-12-01 | Outpatient (REF) | payer OTHER | LOC: M LAB REF 16:55 | PROVIDERS: ATTEND Nurse Practitioner Family | DX: N39.0 Urinary tract infection, site not specified (principal) ==

== ENCOUNTER → 2020-02-03 | Outpatient (CLI) | payer OTHER ==
[~2020-02-03] MED LIST changes: +ACET-838 PO; -NON-325T5 PO
--- NOTE | 2020-02-03 11:15 | REP ---
INDICATION: OCCLUSION AND STENOSIS PRESLEY CAROTID ARTERY, ATHSCL history of carotid stent in 2015. COMPARISON: April 30, 2014.. TECHNIQUE: Real-time ultrasound evaluation and duplex Doppler interrogation of the extracranial carotid vasculature is performed. FINDINGS: Antegrade flow is observed in both vertebral arteries. Right carotid: There is mixed plaquing in the bulb, proximal ICA and proximal ECA on the right side on two-dimensional scanning. Color flow and spectral Doppler interrogation are unremarkable on the right ICA. Stenotic flow velocities are observed in the ECA on the right... Velocity chart right carotid: Right CCA PSV: 82 cm/S Right ICA PSV: 63 cm/S Right ICA EDV: 19 cm/S Right ECA PSV: 270 cm/S Right ICA/CCA ratio: 0.8 Left carotid: A patent stent is observed in the distal CCA on the left extending into the distal portion of the ICA in the left neck. Move mixed plaquing is seen and severe stenosis is observed in the left external carotid artery. No high-grade stenosis is observed in the ICA.. Velocity chart left carotid: Left CCA PSV: 88 cm/S Left ICA PSV: 125 cm/S Left ICA EDV: 38 cm/S Left ECA PSV: 601 cm/S Left ICA/CCA ratio: 1.4 IMPRESSION: Less than 50% category narrowing in the right internal carotid artery by Doppler velocity criteria. Stenotic flow velocities are observed in the right external carotid artery. 50-69 category narrowing in the left ICA by Doppler velocity criteria. Patent left CCA 2 ICA stent. Stenotic flow velocities are again seen in the ECA on the left. <Electronically signed by He Cullen > 02/03/20 1111
--- NOTE | 2020-02-03 11:19 | REP ---
INDICATION: R/O CATHY; OCCLUSION AND STENOSIS PRESLEY CAROTID ARTERY, ATHSCL. History of renal artery stenting. COMPARISON: March 02, 2019.. TECHNIQUE: Urinary tract sonography with renal artery Doppler sonography. FINDINGS: Scanning at the level of the urinary bladder shows no abnormality. Renal cortical echogenicity pattern is normal bilaterally and contours are smooth. There is no evidence of hydronephrosis, cyst, mass, or calculus in either kidney. The right kidney measures 11.5 x 5.4 x 4.1 cm. Left renal dimensions are 7.5 x 2.8 x 3.1 cm. The left kidney is felt to be somewhat atrophic. Doppler sonography: Peak systolic flow velocity in the abdominal aorta at the level of main renal arteries is recorded at 81.8 centimeters/second. A patent stent is observed in the right main renal artery. Right main renal artery waveforms are normal. Peak systolic flow velocity in the right main renal artery is 169 centimeters/second, renal to aortic flow velocity ratio within normal range 2.07. On the left, parvus tardus waveforms are noted in the left main renal artery. Flow velocities are not elevated however measured at 55 centimeters/second. Renal to aortic flow velocity ratio on the left 0.67. Resistive indices and acceleration times are measured in the intralobar arteries at the upper, mid and lower pole of each kidney in these values are unremarkable. IMPRESSION: The left kidney is felt to be atrophic. Renal artery flow velocities which were previously quite high, have now normalized. Patent stent.. <Electronically signed by He Cullen > 02/03/20 1110
== END ==
LOC: M RAD 08:02
PROVIDERS: ATTEND Physician Assistant
DX: I65.23 Occlusion and stenosis of bilateral carotid arteries (principal); I70.1 Atherosclerosis of renal artery; Z96.0 Presence of urogenital implants

== ENCOUNTER → 2020-02-19 | Outpatient (CLI) | payer OTHER ==
[~2020-02-19] MED LIST changes: +ISOVUE-370 76% 100ML VIAL As Ordered ONE
--- NOTE | 2020-02-19 11:13 | REP ---
INDICATION: THORACIC AA WITHOUT RUPTURE. COMPARISON: Chest CT without IV contrast dated 01/27/2019. TECHNIQUE: Chest CT with IV contrast for evaluation of the thoracic aorta for aneurysm. FINDINGS: The ascending thoracic aorta is normal size measuring up to 3.7 cm in diameter. The aortic arch is normal size measuring up to 2.8 cm in diameter. There are 3 focal areas of aneurysmal dilatation in the descending thoracic aorta as follows: Measurements are made on the axial, coronal and sagittal images. Upper descending thoracic aorta: 3.3 by 3.1 by 3.2 cm. Mid descending thoracic aorta: 3.9 x 3.7 x 4.0 cm. Distal descending thoracic aorta: 3.4 x 3.4 x 3.3 cm. There is occasional calcified atheroma throughout the thoracic aorta. There is calcified atheroma in the coronary arteries. There are no lung masses, nodules, infiltrates or effusions. There is no mediastinal, hilar are or axillary lymph node enlargement. Cardiac size is mildly enlarged. There is no pericardial effusion. Upper abdomen: There is diffuse renal cortical atrophy of the left kidney. The visualized upper abdominal contents are otherwise unremarkable. 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 There is no evidence of dissection. The ascending thoracic aorta and aortic arch are unremarkable. There is diffuse renal cortical atrophy of the left kidney. <Electronically signed by Andrey Chong > 02/19/20 [id number]
== END ==
LOC: M RAD 09:45
PROVIDERS: ATTEND Physician Assistant
DX: I71.2 Thoracic aortic aneurysm, without rupture (principal)
CPT/HCPCS: 71275; Q9967

== ENCOUNTER → 2020-03-01 | Outpatient (REF) | payer OTHER ==
[~2020-03-01] MED LIST changes: -ISOVUE-370 76% 100ML VIAL As Ordered ONE
[2020-03-01 17:22] LABS: PERCENT SATURATION 17.5 % (13.2-45.0)
== END ==
LOC: M LAB REF 16:59
PROVIDERS: ATTEND Nurse Practitioner Family
DX: D50.9 Iron deficiency anemia, unspecified (principal)

== ENCOUNTER → 2020-08-31 | Outpatient (REF) | payer OTHER ==
[~2020-08-31] MED LIST changes: -ACET-838 PO; +ACET32TAB PO; +HYDR-3490 PO; -HYDR25TAB PO
[2020-08-31 18:04] LABS: BACTERIA, URINE AUTO 1+ (NEGATIVE); RBC, URINE AUTO 7 /HPF (0-3); SQUAMOUS EPITHELIAL CELL UR AU 0 /HPF (0-6); WBC, URINE AUTO 66 /HPF (0-3)
[2020-08-31 18:19] LABS: PERCENT SATURATION 23.5 % (13.2-45.0)
== END ==
LOC: M LAB REF 17:27
PROVIDERS: ATTEND Nurse Practitioner Family
DX: D50.9 Iron deficiency anemia, unspecified (principal)

== ENCOUNTER → 2020-09-06 | Outpatient (REF) | payer OTHER ==
[2020-09-06 17:47] LABS: APPEARANCE, URINE HAZY (CLEAR); BACTERIA, URINE AUTO NEGATIVE (NEGATIVE); BILIRUBIN, URINE AUTO NEGATIVE (NEGATIVE); BLOOD, URINE BLOOD 1+ (NEGATIVE); COLOR, URINE YELLOW (YELLOW); GLUCOSE, URINE (UA) AUTO NEGATIVE (NEGATIVE); KETONE, URINE AUTO NEGATIVE (NEGATIVE); LEUKOCYTE ESTERASE, URINE AUTO 3+ (NEGATIVE); NITRITE, URINE AUTO NEGATIVE (NEGATIVE); PROTEIN, URINE AUTO NEGATIVE (NEGATIVE); RBC, URINE AUTO 5 /HPF (0-3); SPECIFIC GRAVITY URINE AUTO 1.012 (1.002-1.035); SQUAMOUS EPITHELIAL CELL UR AU 2 /HPF (0-6); UROBILINOGEN, URINE AUTO 0.2 mg/dL (0.0-2.0); WBC, URINE AUTO TNTC /HPF (0-3)
== END ==
LOC: M LAB REF 16:59
PROVIDERS: ATTEND Nurse Practitioner Family
DX: N39.0 Urinary tract infection, site not specified (principal)

== ENCOUNTER → 2020-09-27 | Outpatient (POV) | payer OTHER ==
[~2020-09-27] VITALS: Ht 154.9 cm; Wt 70.4 kg
[2020-09-27 10:20] VITALS: BP 130/60
--- NOTE | 2020-09-29 13:21 | IRPN ---
[facility] IR Progress Note IR Progress Note DATE: Sep 27, 2020 FOLLOW-UP: 59-year-old female, previously underwent right renal artery stenting with me in July 2019. She presents for follow-up. Patient reports she is doing well. She is exercising. She is active. She is enjoying her summer. She reports her blood pressures have been running 130/80. No issues with hypertension. She reports her renal function is doing fine. She's recently stopped her Plavix, after taking it for 1 year. She continues on baby aspirin. Unfortunately, she restarted smoking. Imaging: I personally reviewed the CTA chest performed in February 2020 for other reasons. This nicely shows that the right renal artery is patent and the stent is patent. The right kidney is hypertrophied and enhancing well. IMPRESSION: Doing well after renal right renal artery stenting with no further refractory hypertension or renal compromise, and good stent patency 12 months out. Patient should continue on baby aspirin. Patient is encouraged to stop smoking again. No further follow-up scheduled with me unless initiated by patient and/or referring provider. Thank you for this referral. Cc Dr. Skyler Bradley Allergies Coded Allergies: No Known Allergies (Verified , 03/12/19) VS,Fishbone, I+O VS, Fishbone, I+O Vital Signs Date Time Temp Pulse Resp B/P (MAP) Pulse Ox O2 Delivery O2 Flow Rate FiO2 09/27/20 10:20 97.9 57 20 130/60 (83) 99 Room Air MINERVA ELDER MD Sep 29, 2020 13:21
== END ==
LOC: M IRPOV 10:16
PROVIDERS: ATTEND Radiology Diagnostic Radiology
DX: Z48.816 Encounter for surgical aftercare following surgery on the genitourinary system (principal); F17.210 Nicotine dependence, cigarettes, uncomplicated; Z79.82 Long term (current) use of aspirin; Z95.828 Presence of other vascular implants and grafts

== ENCOUNTER → 2020-11-24 | Outpatient (REF) | payer OTHER | LOC: M LAB REF 11:27 | PROVIDERS: ATTEND Physician Assistant | DX: Z11.52 Encounter for screening for COVID-19 (principal) ==

== ENCOUNTER → 2021-03-22 | Outpatient (REF) | payer OTHER ==
[~2021-03-22] MED LIST changes: +LOSA100T45 PO; -LOSA100T50 PO; +LOSA50TA28 PO; -LOSA50TA88 PO
[2021-03-22 17:44] LABS: APPEARANCE, URINE CLEAR (CLEAR); BACTERIA, URINE AUTO NEGATIVE (NEGATIVE); BILIRUBIN, URINE AUTO NEGATIVE (NEGATIVE); BLOOD, URINE BLOOD 2+ (NEGATIVE); COLOR, URINE STRAW (YELLOW); GLUCOSE, URINE (UA) AUTO NEGATIVE (NEGATIVE); KETONE, URINE AUTO NEGATIVE (NEGATIVE); LEUKOCYTE ESTERASE, URINE AUTO 2+ (NEGATIVE); NITRITE, URINE AUTO NEGATIVE (NEGATIVE); PROTEIN, URINE AUTO NEGATIVE (NEGATIVE); RBC, URINE AUTO 1 /HPF (0-3); SPECIFIC GRAVITY URINE AUTO 1.006 (1.002-1.035); SQUAMOUS EPITHELIAL CELL UR AU 0 /HPF (0-6); UROBILINOGEN, URINE AUTO 0.2 mg/dL (0.0-2.0); WBC, URINE AUTO 13 /HPF (0-3)
== END ==
LOC: M SMT 16:53
PROVIDERS: ATTEND Nurse Practitioner Women's Health
DX: R31.29 Other microscopic hematuria (principal)

== ENCOUNTER → 2021-08-29 | Outpatient (CLI) | payer OTHER ==
[~2021-08-29] MED LIST changes: +ISOVUE-370 76% 100ML VIAL As Ordered ONE
== END ==
LOC: M RAD 09:01
PROVIDERS: ATTEND Nurse Practitioner Family
DX: R16.1 Splenomegaly, not elsewhere classified (principal); R59.0 Localized enlarged lymph nodes
CPT/HCPCS: 74178; Q9967

== ENCOUNTER → 2021-09-06 | Outpatient (CLI) | payer OTHER ==
[~2021-09-06] MED LIST changes: -ISOVUE-370 76% 100ML VIAL As Ordered ONE
== END ==
LOC: M LAB 10:37
PROVIDERS: ATTEND Family Medicine
DX: R79.9 Abnormal finding of blood chemistry, unspecified (principal); R16.1 Splenomegaly, not elsewhere classified

== ENCOUNTER → 2021-12-10 | Outpatient (CLI) | payer OTHER ==
[~2021-12-10] MED LIST changes: +ASPI1CHW3 PO; +POTA1TAB23; +VITA100093
== END ==
LOC: M LABSMTC 11:30
PROVIDERS: ATTEND Anesthesiology
DX: Z01.812 Encounter for preprocedural laboratory examination (principal); Z11.52 Encounter for screening for COVID-19

== ENCOUNTER 2021-12-14 08:43 | Day surgery (SDC) | payer OTHER ==
[~2021-12-14] VITALS: Ht 154.9 cm; Wt 67.1 kg
[~2021-12-14 08:43] MED LIST changes: +NS 1,000 ML IV ONE
[2021-12-14] MEDS ORDERED: propofoL 200 MG/20 ML VIAL As Ordered ONE (09:23)
[2021-12-14] MEDS ORDERED: LIDOCAINE 2% 100MG/5ML SDV (FOR ANES.) As Ordered ONE (09:23)
[2021-12-14 10:25] VITALS: BP 180/78
== END 2021-12-14 10:37 | disposition home or self-care (01) ==
LOC: M OPP 08:43
PROVIDERS: ATTEND Surgery
DX: Z12.11 Encounter for screening for malignant neoplasm of colon (principal); Z79.02 Long term (current) use of antithrombotics/antiplatelets; Z79.82 Long term (current) use of aspirin; Z79.899 Other long term (current) drug therapy; I10 Essential (primary) hypertension; E78.5 Hyperlipidemia, unspecified; E03.9 Hypothyroidism, unspecified; Z90.89 Acquired absence of other organs; Z86.73 Personal history of transient ischemic attack (TIA), and cerebral infarction without residual deficits; F17.210 Nicotine dependence, cigarettes, uncomplicated

== ENCOUNTER → 2022-02-07 | Outpatient (CLI) | payer OTHER ==
[~2022-02-07] MED LIST changes: -NS 1,000 ML IV ONE
== END ==
LOC: M RAD 10:50
PROVIDERS: ATTEND Physician Assistant
DX: I65.23 Occlusion and stenosis of bilateral carotid arteries (principal); Z48.812 Encounter for surgical aftercare following surgery on the circulatory system

== ENCOUNTER → 2022-02-14 | Outpatient (CLI) | payer OTHER ==
[~2022-02-14] MED LIST changes: +GASTROGRAFIN SOLUTION 30ML As Ordered ONE; +ISOVUE-370 76% 100ML VIAL As Ordered ONE
== END ==
LOC: M RAD 08:26
DX: I71.23 Aneurysm of the descending thoracic aorta, without rupture (principal)

== ENCOUNTER → 2022-02-14 | Outpatient (CLI) | payer OTHER ==
[~2022-02-14] MED LIST changes: -GASTROGRAFIN SOLUTION 30ML As Ordered ONE; -ISOVUE-370 76% 100ML VIAL As Ordered ONE
== END ==
LOC: M RAD 08:23
PROVIDERS: ATTEND Specialist
DX: R16.2 Hepatomegaly with splenomegaly, not elsewhere classified (principal)

== ENCOUNTER → 2022-08-13 | Outpatient (CLI) | payer OTHER ==
[~2022-08-13] MED LIST changes: +ASPI-655 PO; -ASPI1CHW3 PO; +GASTROGRAFIN SOLUTION 30ML As Ordered ONE; +ISOVUE-370 76% 100ML VIAL As Ordered ONE; -LOSA100T45 PO; +LOSA100T46 PO
[2022-08-13 11:31] LABS: ALBUMIN 3.6 G/DL (3.2-5.2); ALKALINE PHOSPHATASE 91 U/L (46-116); ALT/SGPT 14 U/L (7.0-40); AST/SGOT < 8 U/L (<34); BILIRUBIN,TOTAL 0.4 MG/DL (0.3-1.2); BLOOD UREA NITROGEN 18 MG/DL (9-23); CALCIUM LEVEL 8.7 MG/DL (8.3-10.6); CARBON DIOXIDE LEVEL 29 MMOL/L (20-31); CHLORIDE LEVEL 106 MMOL/L (98-107); CREATININE FOR GFR 1.15 MG/DL (0.55-1.30); GLOMERULAR FILTRATION RATE 50.7 (>45); GLUCOSE, FASTING 97 MG/DL (74-106); POTASSIUM SERUM 4.1 MMOL/L (3.5-5.1); SODIUM LEVEL 141 MMOL/L (136-145); TOTAL PROTEIN 6.5 G/DL (5.7-8.2)
== END ==
LOC: M RAD 10:25
PROVIDERS: ATTEND Specialist
DX: R16.1 Splenomegaly, not elsewhere classified (principal)
CPT/HCPCS: 36415; 71260; 74177; 80053; Q9963; Q9967

== ENCOUNTER → 2023-02-19 | Outpatient (CLI) | payer OTHER | LOC: M RAD 13:32 | PROVIDERS: ATTEND Nurse Practitioner | DX: R59.9 Enlarged lymph nodes, unspecified (principal); I71.23 Aneurysm of the descending thoracic aorta, without rupture | CPT/HCPCS: 71260; 74177; Q9963; Q9967 ==

== ENCOUNTER → 2023-03-26 | Outpatient (REF) | payer OTHER ==
[~2023-03-26] MED LIST changes: -GASTROGRAFIN SOLUTION 30ML As Ordered ONE; -HYDR-3911 PO; +HYDR50TA46 PO; -ISOVUE-370 76% 100ML VIAL As Ordered ONE
== END ==
LOC: M LAB REF 17:11
PROVIDERS: ATTEND Nurse Practitioner Family
DX: N39.0 Urinary tract infection, site not specified (principal)

== ENCOUNTER → 2023-10-25 | Outpatient (REF) | payer OTHER, MEDICARE ==
[2023-10-25 18:04] LABS: BACTERIA, URINE AUTO NEGATIVE (NEGATIVE); RBC, URINE AUTO 2 /HPF (0-3); SQUAMOUS EPITHELIAL CELL UR AU 1 /HPF (0-6); WBC, URINE AUTO 1 /HPF (0-3)
== END ==
LOC: M LAB REF 17:15
PROVIDERS: ATTEND Nurse Practitioner Family
DX: N39.0 Urinary tract infection, site not specified (principal)

== ENCOUNTER → 2024-03-16 | Outpatient (CLI) | payer MEDICARE ==
[~2024-03-16] MED LIST changes: +ISOVUE-370 76% 100ML VIAL As Ordered ONE
== END ==
LOC: M RAD 08:33
PROVIDERS: ATTEND Internal Medicine Hematology & Oncology
DX: R16.1 Splenomegaly, not elsewhere classified (principal); I71.20 Thoracic aortic aneurysm, without rupture, unspecified
CPT/HCPCS: 71260; 74177; Q9967

== ENCOUNTER → 2024-07-08 | Outpatient (CLI) | payer MEDICARE ==
[~2024-07-08] MED LIST changes: -ISOVUE-370 76% 100ML VIAL As Ordered ONE
== END ==
LOC: M PLAIMG 07:36
PROVIDERS: ATTEND Physician Assistant
DX: I71.20 Thoracic aortic aneurysm, without rupture, unspecified (principal)

== ENCOUNTER → 2024-07-13 | Outpatient (CLI) | payer MEDICARE ==
[~2024-07-13] MED LIST changes: +ISOVUE-370 76% 100ML VIAL As Ordered ONE
== END ==
LOC: M RAD 09:09
PROVIDERS: ATTEND Surgery Vascular Surgery
DX: I71.23 Aneurysm of the descending thoracic aorta, without rupture (principal)

== ENCOUNTER → 2024-07-16 | Outpatient (REF) | payer MEDICARE ==
[~2024-07-16] MED LIST changes: -ISOVUE-370 76% 100ML VIAL As Ordered ONE
[2024-07-16 17:43] LABS: APPEARANCE, URINE CLEAR (CLEAR); BACTERIA, URINE AUTO NEGATIVE (NEGATIVE); BILIRUBIN, URINE AUTO NEGATIVE (NEGATIVE); BLOOD, URINE BLOOD 1+ (NEGATIVE); COLOR, URINE YELLOW (YELLOW); GLUCOSE, URINE (UA) AUTO NEGATIVE (NEGATIVE); KETONE, URINE AUTO NEGATIVE (NEGATIVE); LEUKOCYTE ESTERASE, URINE AUTO NEGATIVE (NEGATIVE); NITRITE, URINE AUTO NEGATIVE (NEGATIVE); PROTEIN, URINE AUTO NEGATIVE (NEGATIVE); RBC, URINE AUTO 7 /HPF (0-3); SPECIFIC GRAVITY URINE AUTO 1.012 (1.002-1.035); SQUAMOUS EPITHELIAL CELL UR AU 1 /HPF (0-6); UROBILINOGEN, URINE AUTO 0.2 mg/dL (0.0-2.0); WBC, URINE AUTO 0 /HPF (0-3)
== END ==
LOC: M SMT 16:56
PROVIDERS: ATTEND Nurse Practitioner Family
DX: R31.29 Other microscopic hematuria (principal)

== ENCOUNTER → 2024-09-22 | Outpatient (REF) | payer MEDICARE ==
[2024-09-22 13:24] LABS: APPEARANCE, URINE HAZY (CLEAR); BACTERIA, URINE AUTO NEGATIVE (NEGATIVE); BILIRUBIN, URINE AUTO NEGATIVE (NEGATIVE); BLOOD, URINE BLOOD 1+ (NEGATIVE); GLUCOSE, URINE (UA) AUTO NEGATIVE (NEGATIVE); KETONE, URINE AUTO NEGATIVE (NEGATIVE); LEUKOCYTE ESTERASE, URINE AUTO NEGATIVE (NEGATIVE); NITRITE, URINE AUTO NEGATIVE (NEGATIVE); PROTEIN, URINE AUTO NEGATIVE (NEGATIVE); RBC, URINE AUTO 0 /HPF (0-3); SPECIFIC GRAVITY URINE AUTO 1.005 (1.002-1.035); SQUAMOUS EPITHELIAL CELL UR AU 0 /HPF (0-6); UROBILINOGEN, URINE AUTO 0.2 mg/dL (0.0-2.0); WBC, URINE AUTO 0 /HPF (0-3)
== END ==
LOC: M SMT 12:41
PROVIDERS: ATTEND Nurse Practitioner Family
DX: R31.29 Other microscopic hematuria (principal)